=== PATIENT | female | born 1990 | race Asian ===

== ENCOUNTER 2019-05-26 14:58 | Outpatient (CLI) | payer OTHER ==
[~2019-05-26] VITALS: Ht 162.6 cm; Wt 63.2 kg
[2019-05-26] MEDS ORDERED: PREN29TA4 PO (15:13)
[2019-05-26 15:20] VITALS: BP 106/74
[2019-05-26 15:46] LABS: HEMATOCRIT 32.4 % (36.0-47.0); HEMOGLOBIN 11.4 g/dl (12.0-15.5); MEAN CORPUSCULAR HEMOGLOBIN 32.9 pg (27.0-33.0); MEAN CORPUSCULAR HGB CONC 35.2 g/dl (32.0-36.5); MEAN CORPUSCULAR VOLUME 93.6 fl (80.0-96.0); PLATELET COUNT, AUTOMATED 190 10^3/uL (150-450); RED BLOOD COUNT 3.46 10^6/uL (4.00-5.40); WHITE BLOOD COUNT 7.6 10^3/uL (4.0-10.0)
[2019-05-26] MEDS ORDERED: TERBUTALINE SULFATE 1 MG/ML VIAL (J3105) SC ONE (16:00)
[2019-05-26] MEDS ORDERED: LR 1,000 ML IV ONE (16:00)
--- NOTE | 2019-05-26 16:31 | IPNPDOC ---
Text Note Date of Service The patient was seen on 05/26/19. NOTE Patient is a 28 yo G1 @ 37+3wks gestation with mal presentation presents for scheduled ECV. patient without concerns today. denies ctx/lof/vb. +FM. NPO since 0900 this AM. Patient speaks Uzbek and medical transcription radiology used to consent patient. vitals: normal nad abd: gravid, soft, nt le: no edema erythema tenderness fht: 125/mod saba/pos accel/no decel toco: quiet taus: breech, head on maternal left upper quadrant, anterior right sided placenta, amniotic fluid visually adequate. a/p patient is at 37+3wks desiring ECV. Patient given option of having scheduled primary delivery as alternative to ECV. Discussed risk of discomfort during procedure, unable to complete ECV, baby turning back to breech after successful version, going into labor, placental abruption as well as distress requiring emergent delivery. Benefit of ECV is that she can attempt vaginal delivery which is safer than a delivery and avoids surgical risks. After discussing with patient and spouse, couple desires to wait for baby to turn on it's own and schedule for primary section if baby is still breech. Offered earliest date for scheduled section at 39wks on 13mar and patient would like to think about which date first. Patient instructed to make f/u appointment with clinic next week to schedule section and counseling. DO Lilly VS,Fishbone, I+O VS, Fishbone, I+O Vital Signs Date Time Temp Pulse Resp B/P (MAP) Pulse Ox O2 Delivery O2 Flow Rate FiO2 05/26/19 15:20 98.1 69 18 106/74 (85) 98 Room Air VIKASH KHANNA DO May 26, 2019 15:42
== END 2019-05-26 16:37 | disposition home or self-care (01) ==
LOC: M LDO 14:58
PROVIDERS: ATTEND Obstetrics & Gynecology
DX: O32.1XX0 Maternal care for breech presentation, not applicable or unspecified (principal); Z3A.37 37 weeks gestation of pregnancy
CPT/HCPCS: 36415; 59025; 76815; 85027; 86850; 86900; 86901; G0378; G0463

== ENCOUNTER 2019-06-05 06:54 | Inpatient (IN) | payer OTHER ==
[2019-06-05] VITALS (8 sets, daily range): BP systolic 110–124; BP diastolic 65–85
[~2019-06-05] VITALS: Ht 162.6 cm; Wt 64.3 kg
[~2019-06-05 06:54] MED LIST: PREN29TA4 PO
[2019-06-05] MEDS ORDERED: ceFAZolin SOD 2 GM in IV 1 EA IV STA (07:21)
[2019-06-05] MEDS ORDERED: LR 1,000 ML IV SCH ×2 (07:21→10:15)
[2019-06-05] MEDS ORDERED: LACTATED RINGER'S 1000 ML IV STA (07:21)
[2019-06-05 07:40] LABS: HEMATOCRIT 33.9 % (36.0-47.0); HEMOGLOBIN 12.1 g/dl (12.0-15.5); MEAN CORPUSCULAR HEMOGLOBIN 32.9 pg (27.0-33.0); MEAN CORPUSCULAR HGB CONC 35.7 g/dl (32.0-36.5); MEAN CORPUSCULAR VOLUME 92.1 fl (80.0-96.0); PLATELET COUNT, AUTOMATED 205 10^3/uL (150-450); RED BLOOD COUNT 3.68 10^6/uL (4.00-5.40); WHITE BLOOD COUNT 9.7 10^3/uL (4.0-10.0)
--- NOTE | 2019-06-05 07:53 | HPEPDOC ---
Obstetrical History & Physical General Date of Admission Jun 05, 2019 at 07:25 History of Present Illness patient is a 28 yo G1 @ 38+6 wks gestation with breech presentation present to l &d with concern for regular painful contractions since 0530 this AM. patient last ate around 1999. denies LOF/VB. Patient speaks Romanian. 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 Chief Complaint: Contractions, term Information Provided By: Patient Age: 28 : 1 Term: 0 Pre-term: 0 Abortions: 0 Livin Care Care: Good Care Dating Final EDC: Jun 13, 2019 Final EDC for Daily Update: Jun 13, 2019 Past Medical History Past Obstetrical History : Past Obstetrical History: [employer] EQUIPMENT W[employer]ER History: No pertinent history Past Medical History Medical History denies Surgical History: Denies/None Family History Significant Family History: No pertinent family hx Social History Marital Status: Family situation: Spouse/partner home * Smoker: non-smoker Alcohol: Denies Drugs: denies Imunizations Tdap status: current Influenza Status: current Allergies Coded Allergies: No Known Allergies (Unverified , 05/26/19) Medications Scheduled Prenat 115/Iron Fum/Folic/Dss ( 19 Tablet) 1 Each Tablet, 1 TAB PO DAILY Physical Examination Physical Examination GENERAL: Alert and oriented times three. BREAST: . ABDOMEN: Gravid and non-tender to touch. FETUS: breech by US HEART RATE: Regular rate and rhythm. LUNGS: Clear to auscultation (CTA). EXTREMITIES: No edema/erythema/tenderness EFW: 3000gm Vital Signs/I&O Vital Signs Date Time Temp Pulse Resp B/P (MAP) Pulse Ox O2 Delivery O2 Flow Rate FiO2 06/05/19 07:13 98.2 93 16 123/85 (98) Laboratory Data 24H LABS Laboratory Tests 2 06/05/19 07:33: 06/05/19 07:35: Serology Scanned Report Hepatitis B Testing CBC/BMP Pertinent Laboratoy Data Blood Type: B+ RBC Antibody Screen: Negative HIV: Negative Hepatitis B: Negative Rapid Plasma Reagin: Nonreactive Rubella: Immune Chlamydia/Gonorrhea: Negative Group B Streptococcus: Unknown Anatomy Ultrasound Placenta Location: Anterior Normal Anatomy: Yes Placenta Previa: No Vaginal Examination Dilation: 4 cm Effacement: 80% Station: 0 Cervical Consistency: Soft Cervical Position: Middle Presentation: Breech presentation Assessment Heart Rate (FHR): 125 Variability: Moderate Accelerations: Present Decelerations: None Tocometer Contractions: Yes Frequency: every 1-3 min. Assessment/Plan Assessment patient is a 28 yo G1 @ 38+6wks gestation, breech presentation in labor. Patient was counseled in clinic with upper sorbian machinist supervisor outside for primary delivery. Today patient and spouse continues to desire to have section. Plan Admit and orient. Charge Hand and consent. Diet: NPO Labs and intravenous (IV) per unit protocol. ancef for prophy back to OR once team ready. DO JEY Carr LUAT N. DO Jun 05, 2019 07:53
[2019-06-05] MEDS ORDERED: BICITRA 30ML SOLN UDC PO ONE (08:00)
[2019-06-05] MEDS ORDERED: OXYTOCIN INJ 10 UNITS/ML VIAL (J2590) As Ordered ONE (08:08)
[2019-06-05] MEDS ORDERED: ONDANSETRON 4MG/2ML VIAL (J2405) As Ordered ONE (08:08)
[2019-06-05] MEDS ORDERED: KETOROLAC 60 MG/2 ML VIAL (J1885) As Ordered ONE (08:08)
[2019-06-05] MEDS ORDERED: dexameTHASONE 4 MG/ML 1ML VIAL (J1100) As Ordered ONE (08:08)
[2019-06-05] MEDS ORDERED: MORPHINE PRES-FREE INJ 10 MG/10 ML VIAL (J2274) As Ordered ONE (08:14)
[2019-06-05] MEDS ORDERED: fentaNYL 100 MCG/2 ML INJECTION (J3010) As Ordered ONE (08:14)
[2019-06-05] MEDS ORDERED: METOCLOPRAMIDE INJ 10MG/2ML VIAL (J2765) IV PRN ×2 (08:32→10:15)
[2019-06-05] MEDS ORDERED: diphenhydrAMINE INJ 50MG/ML VIAL (J1200) IV PRN (08:32)
[2019-06-05] MEDS ORDERED: NALBUPHINE HCL 10 MG/ML AMP (J2300) IV PRN (08:32)
[2019-06-05] MEDS ORDERED: NALOXONE INJ 0.4 MG/1 ML VIAL (J2310) IV PRN ×2 (08:32)
[2019-06-05] MEDS ORDERED: ONDANSETRON 4MG/2ML VIAL (J2405) IV PRN ×3 (08:32→10:15)
[2019-06-05] MEDS ORDERED: PHENYLephrine HCL 500 MCG/5 ML (100MCG/ML) SYRINGE (J2370) As Ordered ONE (09:09)
[2019-06-05] MEDS ORDERED: OXYTOCIN DRIP 30 UNITS in IV 1 EA IV SCH (09:48)
[2019-06-05] MEDS ORDERED: PERCOCET 5MG/325MG TAB PO PRN ×2 (10:00→10:15)
[2019-06-05] MEDS ORDERED: RHOGAM 300 MCG (1500 IU) INJ (J2790) IM SCH (10:00)
[2019-06-05] MEDS ORDERED: MEASLES,MUMPS,RUBELLA VACCINE INJ (MMR-II) (90707) SC SCH (10:00)
[2019-06-05] MEDS ORDERED: OXYTOCIN 30 UNITS IN 0.9% NaCl 500ML IV BAG (J2590) As Ordered ONE (10:14)
[2019-06-05] MEDS ORDERED: fentaNYL 100 MCG/2 ML INJECTION (J3010) IV PRN (10:15)
[2019-06-05] MEDS ORDERED: MEPERIDINE INJ 25 MG/ML VIAL (J2175) IV PRN (10:15)
--- NOTE | 2019-06-05 11:54 | DNPDOC ---
[facility] Delivery Note Delivery Note DATE OF DELIVERY: 06/05/2019 PREDELIVERY DIAGNOSIS: 1) 38+6/7 weeks' gestation and labor. 2) Breech presentation POST DELIVERY DIAGNOSIS: Status post Primary low transverse section PROCEDURE: section PATROL LADY: Dr. Vikash Carr DO ANESTHESIA: Spinal ESTIMATED BLOOD LOSS: 600 mL. FINDINGS: 3390gm male , Score 9/9, nuchal cord times 2. DELIVERY SUMMARY: Uncomplicated Primary low transverse section of breech baby. See operative note for details. VIKASH CARR DO Jun 05, 2019 11:54
--- NOTE | 2019-06-05 12:15 | POST-OPPD ---
Postoperative Procedure Note Date Of Procedure: Jun 05, 2019 PREOPERATIVE DIAGNOSIS: 1) Labor at 38+6wks gestation 2) breech presentation POSTOPERATIVE DIAGNOSIS: 1) status post section FINDINGS: Breech viable male fetus, 9/9. Normal appearing uterus, ovaries and fallopian tubes. PROCEDURE: Primary low transverse section SURGEON: Omar Richards LEARNING DESIGN SPECIALIST: Elizabeth Kingston MD ANESTHESIA: Spinal SPECIMENS: none ESTIMATED BLOOD LOSS: 600cc REPLACED: 1500 cc LR DRAINS: 100cc Urine COMPLICATIONS: none POSTOPERATIVE CONDITION: stable Detailed operative note: Description of procedure: The risks, benefits, indications and alternatives to the procedure were reviewed with the patient and informed consent was obtained. Spinal anesthesia was dosed for surgical analgesic. She was prepped and draped in the normal sterile fashion in the dorsal supine position with a leftward tilt. The abdomen was entered through a low transverse incision. Sharply dissected to fascia layer. Fascia layer entered sharply and carried lateral and upward bilaterally. Space between fascia and rectus muscle created bluntly. Peritoneum entered bluntly between rectus muscles. The rectus muscles and per itoneum bluntly along midline and exposes the gravid uterus. A Lawson uterine incision was made. The uterine incision was extended superolaterally. Presenting baby jennifer breech. Sacrum delivered followed by flexed left leg and flexed right leg. Body followed. Right arm delivered followed by left arm. Double nuchal cord reduced. Head delivered flexed. The cord was clamped and cut. The infant was handed off to awaiting pediatric team. Pitocin bolus started. The placenta delivered spontaneously. The uterus exteriorized. The uterus was cleared of all clots and debris. The uterine incision was repaired with a 2 layers with 0-Chromic and 0-monocryl. Incision inspected to be hemostatic. Gutters cleared of clots. Uterus placed intraabdominal. The peritoneum, fascia and muscle bellies were inspected and noted to be hemostatic. The peritoneum approximated with 3-0 vicryl. The fascia approximated with 0 Vicryl in an running fashion. The subcutaneous tissue closed with 3-0 vicryl. The skin was closed with subcuticular 4-0 vicryl. Dressing applied. The vagina was cleared of clots. Sponge laps, needle and instruments count correct x 2. Patient taken to recovery room in stable condition. DO JEY Carr LUAT N. DO Jun 05, 2019 12:15
[2019-06-05] MEDS: LR 1,000 ML IV SCH ×2 (15:04→23:00)
[2019-06-05] MEDS: KETOROLAC 30 MG/ML VIAL (J1885) IV SCH ×2 (15:56→22:11)
[2019-06-06] VITALS (9 sets, daily range): BP systolic 103–130; BP diastolic 57–79
[2019-06-06] MEDS: KETOROLAC 30 MG/ML VIAL (J1885) IV SCH ×3 (03:59→17:31)
[2019-06-06 07:17] LABS: HEMATOCRIT 27.1 % (36.0-47.0); MEAN CORPUSCULAR HEMOGLOBIN 33.1 pg (27.0-33.0); MEAN CORPUSCULAR HGB CONC 35.1 g/dl (32.0-36.5); MEAN CORPUSCULAR VOLUME 94.4 fl (80.0-96.0); PLATELET COUNT, AUTOMATED 164 10^3/uL (150-450); RED BLOOD COUNT 2.87 10^6/uL (4.00-5.40); WHITE BLOOD COUNT 12.8 10^3/uL (4.0-10.0)
[2019-06-06 07:42] LABS: HEMOGLOBIN 9.5 g/dl (12.0-15.5)
[2019-06-06] MEDS: PRENATAL VITAMINS CHEWABLE TABLET PO SCH (08:42)
[2019-06-06] MEDS: PERCOCET 5MG/325MG TAB PO PRN ×2 (09:46→20:11)
[2019-06-06] MEDS ORDERED: IRON SUCROSE 100MG 5ML VIAL (J1756 PER 1MG) IV SCH (10:30)
--- NOTE | 2019-06-06 10:31 | IPNPDOC ---
Progress Note Date of Service: Jun 06, 2019 Day#: 1 Progress Note SUBJECT: patient is a 28 yo s/p PLTCD for breech presentation POD #1. Patient is having difficulty with pain. Currently on schedueld toradol and PRN percocet. She is able to get up and ambulate. spears recently out. she is tolerating PO without problem. attempting breast feeding. denies dizziness. OBJECTIVE: VITAL SIGNS: Within normal limits, afebrile. Alert and oriented times three. Abdomen: Fundus firm at U-2. Soft, no erythema, dressing on, appropriately tender. LE: no edema/erythema/tenderness A/P patient is POD #1, clinically well. Encourage BF and ambulating. continue with scheduled toradol for 2 more doses. due to void pending. asymptomatic anemia, patient okay with starting IV iron. disposition pending pain management. Lilly, VS, I&O, 24H, Fishbone Vital Signs/I&O Vital Signs Date Time Temp Pulse Resp B/P (MAP) Pulse Ox O2 Delivery O2 Flow Rate FiO2 06/06/19 10:00 97.9 98 19 107/61 (76) Room Air 06/06/19 06:00 98 I&O- Last 24 Hours up to 6 AM 06/06/19 06:00 Intake Total 1375 ml Output Total 3650 ml Balance -2275 ml Laboratory Data 24H LABS Laboratory Tests 2 06/06/19 06:52: Nucleated Red Blood Cells % (auto) 0.0 CBC/BMP Laboratory Tests 06/06/19 06:52 VIKASH KHANNA DO Jun 06, 2019 10:31
[2019-06-06] MEDS: IRON SUCROSE 400 MG in NS 250 ML OVER 2.5 HRS IV SCH (11:31)
[2019-06-07] MEDS: IBUPROFEN 800 MG TAB PO SCH ×3 (00:26→16:48)
[2019-06-07 06:00] VITALS: BP 125/79
[2019-06-07] MEDS: IRON SUCROSE 400 MG in NS 250 ML OVER 2.5 HRS IV SCH (07:36)
[2019-06-07 07:43] LABS: HEMATOCRIT 31.2 % (36.0-47.0); HEMOGLOBIN 10.7 g/dl (12.0-15.5); MEAN CORPUSCULAR HEMOGLOBIN 32.7 pg (27.0-33.0); MEAN CORPUSCULAR HGB CONC 34.3 g/dl (32.0-36.5); MEAN CORPUSCULAR VOLUME 95.4 fl (80.0-96.0); PLATELET COUNT, AUTOMATED 204 10^3/uL (150-450); RED BLOOD COUNT 3.27 10^6/uL (4.00-5.40); WHITE BLOOD COUNT 13.8 10^3/uL (4.0-10.0)
[2019-06-07] MEDS: PERCOCET 5MG/325MG TAB PO PRN ×3 (07:52→23:34)
--- NOTE | 2019-06-07 09:03 | IPN ---
DATE: 06/05/2019 This patient requested circumcision of her male after discussing risks and benefits of circumcision, medical and nonmedical indications, the penile block, and aftercare. Expressed understanding of penile block aftercare and bleeding. Signed the consent form. All questions were answered. 20-minute discussion. We await the clearance by the chair springer.
[2019-06-07] MEDS: PRENATAL VITAMINS CHEWABLE TABLET PO SCH (09:23)
--- NOTE | 2019-06-07 10:39 | IPN ---
DATE: 06/07/2019 This lady is a 28-year-old, 1, para 1, at 38 and 6 weeks of gestation with a breech presentation. She had a primary section for a live male , 3390 grams, of 9 and 9 at one and five minutes respectively. She had significant bleed and she had some difficulty with pain; however, we did sort out that with appropriate pain management. She was on scheduled Toradol and Percocet. On 06/06/2019, her temperature was 97.9, pulse 98, respiration 19 and blood pressure 107/61. Her hemoglobin on admission was 12.1, hematocrit 33.9 and platelets were 205. Postoperative, her hemoglobin was 9.5, hematocrit 27.1 and platelets were 164. She was asymptomatic, however, she had been ordered for 2 units of iron transfusion 24 hours apart. She did get the first iron transfusion, however, the intravenous went subcutaneous and had to be removed. She is still asymptomatic at the present time. She is mobilizing. She is voiding, passing gas. Her blood pressure today is 125/79, respirations 16, pulse 84, and temperature 99.1. We have reordered a CBC this morning. She is asymptomatic. With the significant swelling in her hand from the IV infusion and subcutaneous iron, we have elected to delay the second iron transfusion and allow her to mobilize. If she is asymptomatic, then we will not pursue the second IV infusion. She can bring up her iron levels with appropriate food rich in iron. The patient presently is third day postoperative, just getting comfortable with her medications and her pain management. We anticipate discharge tomorrow morning.
[2019-06-07] MEDS ORDERED: MOM 30ML SUSPENSION UDC PO ONE (14:30)
[2019-06-07 18:19] VITALS: BP 132/77
[2019-06-07] MEDS: DOCUSATE SODIUM 100 MG CAP PO SCH (20:29)
[2019-06-08] MEDS: IBUPROFEN 800 MG TAB PO SCH ×3 (01:51→16:27)
[2019-06-08 06:00] VITALS: BP 116/69
[2019-06-08] MEDS: DOCUSATE SODIUM 100 MG CAP PO SCH ×2 (08:27→21:00)
[2019-06-08] MEDS: PRENATAL VITAMINS CHEWABLE TABLET PO SCH (08:27)
--- NOTE | 2019-06-08 09:28 | IPNPDOC ---
Progress Note Date of Service: Jun 08, 2019 Day#: 3 Progress Note PPD 3/POD 3 SUBJECT: Tommy is a 28yo [id number] s/p uncomplicated PLTCS at 38w6d for breech presentation in labor, doing well day # 3. She has been ambulating without lightheadedness/dizziness, voiding spontaneously without issue and tolerating regular diet. She is currently breast binding because she believes her milk was not coming in well enough and she was having significant pain with engorgement, so she had decided not to breast feed. However, she is heartbroken over this choice because she had really wanted to breastfeed. She still has significant bilateral breast pain from binding. Vaginal bleeding is minimal. Significantly, she hasn't had a BM since before she came to the hospital, about 5 days ago. They tried MOM yesterday without success. She has gas pains. OBJECTIVE: VITAL SIGNS: Within normal limits, afebrile. Alert and oriented times three. Abdomen: Fundus firm at U-2. Soft, appropriately tender to palpation. Optifoam dressing covering pfannensteil with area of strikethrough centrally, no obvious erythema or induration. Extremities: no pain with palpation of calves Labs: pre-op H/H 12.1/33.9 post-op H/H 10.7/31.2 ASSESSMENT: Tommy is a 28yo [id number] s/p uncomplicated PLTCS at 38w6d for breech presentation in labor, doing well day # 3. Vitals within normal limits, afebrile, hemodynamically stable with no evidence of infection. PLAN: 1. Need to effect BM today. Will try Magnesium Citrate and if no BM by this afternoon, pt is amenable to trying an enema 2. Motrin and percocet for pain. Discussed discharge today and patient's is not comfortable taking her home yet with her breast pain. I discussed the decision to breast bind vs trying /pumping again. Patient was tearful with conversation because she had really wanted to breastfeed. I explained that it is generally difficult for women to breastfeed for the first week or two, but breastbinding is also uncomfortable and probably points to the fact that she is making adequate milk for her baby. I discussed all of the health benefits for her and baby if she continues to try /pumping and encouraged her to try again if she is willing. I re-iterated that she needs to feed baby at breast or pump every 2 to 3 hours if she chooses to breast feed. Ultimately it is her decision and fed is best. 3. Encourage ambulation and use of IS 4. Regular diet 5. Will re-eval for possibility of discharge tomorrow morning Dr. Fernanda Orona MD VS, I&O, 24H, Fishbone Vital Signs/I&O Vital Signs Date Time Temp Pulse Resp B/P (MAP) Pulse Ox O2 Delivery O2 Flow Rate FiO2 06/08/19 06:00 98.8 91 16 116/69 (85) 96 Room Air Fernanda Orona MD Jun 08, 2019 09:28
[2019-06-08] MEDS ORDERED: FLEET ENEMA PR PRN (09:30)
[2019-06-08] MEDS: PERCOCET 5MG/325MG TAB PO PRN ×2 (09:35→20:11)
[2019-06-08] MEDS ORDERED: MAGNESIUM CITRATE 300 ML BTL PO ONE (10:30)
[2019-06-08] MEDS ORDERED: diphenhydrAMINE 25 MG CAP PO ONE (16:30)
[2019-06-08 18:00] VITALS: BP 118/78
[2019-06-09] MEDS: IBUPROFEN 800 MG TAB PO SCH ×2 (01:30→09:49)
[2019-06-09] MEDS ORDERED: diphenhydrAMINE 25 MG CAP PO PRN (02:30)
[2019-06-09 05:55] VITALS: BP 115/67
[2019-06-09] MEDS: DOCUSATE SODIUM 100 MG CAP PO SCH (09:49)
[2019-06-09] MEDS: PRENATAL VITAMINS CHEWABLE TABLET PO SCH (09:49)
--- NOTE | 2019-06-09 10:33 | IPNPDOC ---
Progress Note Date of Service: Jun 09, 2019 Day#: 4 Progress Note PPD 4/POD 4 SUBJECT: Tommy is a 28yo [id number] s/p uncomplicated PLTCS at 38w6d for breech presentation in labor, doing well day # 4. She has been ambulating without lightheadedness/dizziness, voiding spontaneously without issue and tolerating regular diet. She is currently breast binding by choice and formula feeding. Vaginal bleeding is minimal. She finally had a BM yesterday after Mag Citrate. No f/c/n/v/CP/SOB. OBJECTIVE: VITAL SIGNS: Within normal limits, afebrile. Alert and oriented times three. Abdomen: Fundus firm at U-2. Soft, appropriately tender to palpation. Optifoam dressing covering pfannensteil with area of strikethrough centrally, no obvious erythema or induration. Extremities: no pain with palpation of calves Labs: pre-op H/H 12.1/33.9 post-op H/H 10.7/31.2 ASSESSMENT: Tommy is a 28yo [id number] s/p uncomplicated PLTCS at 38w6d for breech presentation in labor, doing well day # 4. Vitals within normal limits, afebrile, hemodynamically stable with no evidence of infection. PLAN: 1. Discharge to home today 2. Percocet OR tylenol prn pain. Discontinuing motrin 3. Vaginal rest and no heavy lifting for 6 weeks. Remove optifoam/steri strips in 1 week. Keep incision clean and dry 4. Regular diet 5. Return precautions discussed 6. Next visit in [address] Fernanda Orona MD VS, I&O, 24H, Fishbone Vital Signs/I&O Vital Signs Date Time Temp Pulse Resp B/P (MAP) Pulse Ox O2 Delivery O2 Flow Rate FiO2 06/09/19 05:55 99.2 75 16 115/67 (83) 96 Room Air Fernanda Orona MD Jun 09, 2019 10:33
[2019-06-09] MEDS ORDERED: PERCOCET PO (10:35)
[2019-06-09] MEDS ORDERED: DOCU100C16 PO (10:35)
--- NOTE | 2019-06-09 10:38 | DS.PDOC ---
Discharge Summary General Date of Admission Jun 05, 2019 at 07:25 Date of Discharge Jun 09, 2019 Discharge Summary PROCEDURES PERFORMED DURING STAY: Primary low transverse section ADMITTING DIAGNOSES: 1. Breech presentation at term in active labor DISCHARGE DIAGNOSES: 1. Breech presentation at term in active labor COMPLICATIONS/CHIEF COMPLAINT: C/S For Breech Presentation. HISTORY OF PRESENT ILLNESS/HOSPITAL COURSE: Tommy is a 28yo [id number] s/p uncomplicated PLTCS at 38w6d for breech presentation in labor, doing well day # 4. She had a benign course and at time of discharge she was meeting all milestones. Vitals within normal limits, afebrile, hemodynamically stable with no evidence of infection. DISCHARGE MEDICATIONS: Please see below. ALLERGIES: Please see below. PHYSICAL EXAMINATION ON DISCHARGE: VITAL SIGNS: Within normal limits, afebrile. Alert and oriented times three. Abdomen: Fundus firm at U-2. Soft, appropriately tender to palpation. Optifoam dressing covering pfannensteil with area of strikethrough centrally, no obvious erythema or induration. Extremities: no pain with palpation of calves LABORATORY DATA: Please see below. pre-op H/H 12.1/33.9 post-op H/H 10.7/31.2 DIET: regular DISPOSITION: home DISCHARGE PLAN/INSTRUCTIONS: 1. Discharge to home today 2. Percocet OR tylenol prn pain. Discontinuing motrin 3. Vaginal rest and no heavy lifting for 6 weeks. Remove optifoam/steri strips in 1 week. Keep incision clean and dry 4. Regular diet 5. Return precautions discussed 6. Next visit in 6 weeks DISCHARGE CONDITION: Stable TIME SPENT ON DISCHARGE: Greater than [address] Fernanda Orona MD Vital Signs/I&Os Vital Signs Date Time Temp Pulse Resp B/P (MAP) Pulse Ox O2 Delivery O2 Flow Rate FiO2 06/09/19 05:55 99.2 75 16 115/67 (83) 96 Room Air Discharge Medications Scheduled Docusate Sodium (Docusate Sodium) 100 Mg Capsule, 100 MG PO BID Prenat 115/Iron Fum/Folic/Dss ( 19 Tablet) 1 Each Tablet, 1 TAB PO DAILY, (Reported) Scheduled PRN Oxycodone/Acetaminophen (Oxycodone-Acetaminophen 5-325) 1 Each Tablet, 1 TAB PO Q4H PRN for MILD/MODERATE PAIN (PS 3-6) Allergies Coded Allergies: No Known Allergies (Unverified , 05/26/19) Fernanda Orona MD Jun 09, 2019 10:38
== END 2019-06-09 12:30 | disposition home or self-care (01) | DRG 773 ==
LOC: M LDO 06:54 → M LDI 07:25 → M OBS 11:25
PROVIDERS: ADMIT Obstetrics & Gynecology; ATTEND Obstetrics & Gynecology
PROC: 10D00Z1 Extraction of Products of Conception, Low, Open Approach (ICD-10-PCS; principal; 2019-06-05 08:30)
DX: O32.1XX0 Maternal care for breech presentation, not applicable or unspecified (principal); Z37.0 Single live birth; Z3A.38 38 weeks gestation of pregnancy

== ENCOUNTER 2019-06-10 20:43 | Emergency (ER) | payer OTHER ==
[~2019-06-10 20:43] MED LIST changes: +DOCU100C16 PO; +PERCOCET PO
[2019-06-10] MEDS ORDERED: NS 1,000 ML IV ONE (23:45)
[2019-06-10] MEDS ORDERED: KETOROLAC 30 MG/ML VIAL (J1885) IV ONE (23:45)
[2019-06-11] MEDS ORDERED: ISOVUE-370 76% 100ML VIAL (Q9967) As Ordered ONE (00:17)
[2019-06-11 00:25] LABS: BASO % 0.3 % (0.0-1.0); EOS # 0.2 10^3/uL (0.0-0.5); EOS % 2.2 % (0.0-3.0); HEMATOCRIT 36.1 % (36.0-47.0); HEMOGLOBIN 12.1 g/dl (12.0-15.5); LYMPH # 1.3 10^3/uL (1.5-5.0); MEAN CORPUSCULAR HGB CONC 33.5 g/dl (32.0-36.5); MEAN CORPUSCULAR VOLUME 95.5 fl (80.0-96.0); MONO # 0.6 10^3/uL (0.0-0.8); MONO % 6.7 % (0.0-5.0); NEUTROPHILS % 75.8 % (36.0-66.0); PLATELET COUNT, AUTOMATED 290 10^3/uL (150-450); RED BLOOD COUNT 3.78 10^6/uL (4.00-5.40); WHITE BLOOD COUNT 9.2 10^3/uL (4.0-10.0)
--- NOTE | 2019-06-11 00:40 | REPVR ---
PROCEDURE INFORMATION: Exam: CT Angiography Chest With Contrast Exam date and time: 06/10/2019 11:32 PM Age: 28 years old Clinical indication: Chest pain; Type not specified; Additional info: Chest pain, SOB, 5 days post TECHNIQUE: Imaging protocol: Computed tomographic angiography of the chest with intravenous contrast. 3D rendering: MIP and/or 3D reconstructed images were created by the technologist. Radiation optimization: All CT scans at this facility use at least one of these dose optimization techniques: automated exposure control; mA and/or kV adjustment per patient size (includes targeted exams where dose is matched to clinical indication); or iterative reconstruction. Contrast material: ISO; Contrast volume: 75 ml; Contrast route: AC; COMPARISON: No relevant prior studies available. FINDINGS: Pulmonary arteries: No focal pulmonary artery filling defect to suggest acute pulmonary embolus. Aorta: No thoracic aortic aneurysm or dissection. Lungs: Pulmonary vascular/interstitial pattern does not suggest active pulmonary edema. No suspicious lung mass or air space process. No central endobronchial lesion. Subsegmental atelectasis or scarring at the lateral left lung base. Pleural space: No pleural effusion or pneumothorax. Heart: No overt cardiac enlargement or abnormal volume of pericardial fluid. Lymph nodes: No enlarged mediastinal lymph nodes. Bones/joints: Bony structures show no acute fracture or destructive process. Soft tissues: Unremarkable. IMPRESSION: 1. No evidence of acute pulmonary embolus. 2. No other acute or concerning focal intrathoracic abnormality. Electronically signed by: Migue Cheema On 06/11/2019 00:39:48 AM
[2019-06-11 01:49] VITALS: BP 131/88
== END 2019-06-11 02:05 | disposition home or self-care (01) ==
LOC: M ED 20:43
DX: O92.79 Other disorders of lactation (principal); R06.02 Shortness of breath; R07.89 Other chest pain
CPT/HCPCS: 71275; 80047; 81001; 85025; 87086; 96361; 96374; 99284; J1885; Q9967